=== PATIENT | female | born 1995 | race Caucasian/White ===

== ENCOUNTER 2018-05-05 07:35 | Emergency (ER) | payer OTHER ==
[~2018-05-05] VITALS: Ht 160 cm; Wt 85.3 kg
[2018-05-05] MEDS ORDERED: IPRATRPIUM/ALBUTEROL 0.5/2.5MG 3 ML NEBU. ONE (07:44)
[2018-05-05] MEDS ORDERED: IPRATRPIUM/ALBUTEROL 0.5/2.5MG 3 ML NEBU. NEB ONE (07:45)
[2018-05-05] MEDS ORDERED: predniSONE 20 MG TABLET PO ONE (07:45)
[2018-05-05] MEDS ORDERED: PRED20TA PO (07:50)
[2018-05-05] MEDS ORDERED: ALBU8.5H8 INH (07:50)
--- NOTE | 2018-05-05 07:51 | PHYS DOC ---
Past History Past Medical History: Asthma Past Surgical History: No Surgical History Smoking: Cigarettes, Less than 1pk/day Alcohol Use: None Drug Use: None Adult General HPI HPI Patient is a pleasant 23-year-old female who presents to the emergency department for evaluation. She states she attends college in [place], but is here visiting her mother and she left her inhaler at her college dorm. She states she woke this morning with some mild shortness of breath but did not have her inhaler. She presents to the emergency department for evaluation. She has had a mild dry cough, occasionally productive of scant amounts of yellow sputum, but this is typical of her asthma flares. She has not had any fevers, chills, nasal congestion, and denies any pleuritic pain. There are no alleviating or exacerbating factors to her symptoms. Review of Systems Review of Systems Constitutional: Denies fever or chills [] Eyes: Denies change in visual acuity, redness, or eye pain [] HENT: Denies nasal congestion or sore throat [] Respiratory: As per history of present illness. Denies pleuritic pain.[] GI: Denies abdominal pain, nausea, vomiting, bloody stools or diarrhea [] : Denies [] Neurologic: Denies headache, focal weakness or sensory changes [] Allergies Allergies Allergies Coded Allergies Type Severity Reaction Last Updated Verified No Known Drug Allergies 07/04/15 No Physical Exam Physical Exam PHYSICAL EXAM: CONSTITUTIONAL: Well developed, well nourished HEAD: normocephalic, atraumatic EENT: PERRL, EOMI. Conjunctivae normal color, sclerae non-icteric; moist mucous membranes. NECK: Supple, non-tender; no meningismus. LUNGS: There are mildly diminished breath sounds, with faint expiratory wheezes. Breathing is even and unlabored. HEART: Regular rate and rhythm, no murmur CHEST: No deformity; non-tender ABDOMEN: The abdomen is soft, and non-tender, no masses or bruits. EXTREM: Normal ROM; no deformity, no calf tenderness. Normal pulses palpable in all extremities. There is no pedal edema. SKIN: No rash; no diaphoresis NEURO: Alert; normal speech and cognition; CN's grossly intact; strength grossly intact without focal deficit. BACK: No CVA TTP. EKG EKG [] Radiology/Procedures Radiology/Procedures [] Course & Med Decision Making Course & Med Decision Making 7:55 AM:Patient remains stable, feels much better after nebulizer treatment. Wheezing improved.. I discussed smoking cessation with the patient, medication plan, the need for close follow-up, and return precautions. Dragon Disclaimer Dragon Disclaimer This electronic medical record was generated, in whole or in part, using a voice recognition dictation system. Departure Departure: Impression: Primary Impression: Acute asthma exacerbation Disposition: HOME, SELF-CARE Condition: STABLE Referrals: PRANAY ANDERSON MD (PCP) Patient Instructions: Asthma Attacks, Prevention, Asthma, Acute Bronchospasm, Asthma, Adult, Smoking Cessation, Smoking Cessation, Tips For Success Scripts Prednisone (PREDNISONE) 20 Mg Tablet 40 MG PO DAILY for 4 Days, #8 TAB Prov: BENNY ANNA MD 05/05/18 Albuterol Sulfate (PROAIR HFA INHALER) 8.5 Gm Hfa.aer.ad 1 PUFF INH PRN Q6HRS PRN for SHORTNESS OF BREATH, #1 INHALER 0 Refills Prov: BENNY ANNA MD 05/05/18 BENNY ANNA MD May 05, 2018 07:51
[2018-05-05 08:00] VITALS: BP 134/83
== END 2018-05-05 08:03 | disposition home or self-care (01) ==
LOC: ER 07:35
DX: J45.901 Unspecified asthma with (acute) exacerbation (principal); F17.210 Nicotine dependence, cigarettes, uncomplicated
CPT/HCPCS: 94640; 99283; J7512; J7620